=== PATIENT | female | born 1945 | race Caucasian/White ===

== ENCOUNTER 2016-10-05 08:03 | Inpatient (IN) | payer OTHER, BC ==
[2016-09-25 10:09] VITALS: BMI 29.0
--- NOTE | 2016-09-25 10:36 | PAT Medication Instructions ---
Service Date Sep 25, 2016. Current Home Medication List Budesonide/Formoterol Fumarate (Symbicort 160/4.5 Inhaler ), 2 PUFFS INH BID PRN for Shortness of Breath Levothyroxine Sodium (Levothyroxine Sodium), 1 TAB PO QAM Pravastatin Sod (Pravastatin Sodium), 40 MG PO HS Medication Instructions For Your Scheduled Surgery - Take the following medications the morning of surgery with a sip of water: Levothyroxine Sodium (Levothyroxine Sodium), 1 TAB PO QAM Budesonide/Formoterol Fumarate (Symbicort 160/4.5 Inhaler ), 2 PUFFS INH BID PRN for Shortness of Breath - Take the following medications as scheduled the night before surgery: Pravastatin Sod (Pravastatin Sodium), 40 MG PO HS Budesonide/Formoterol Fumarate (Symbicort 160/4.5 Inhaler ), 2 PUFFS INH BID PRN for Shortness of Breath If you have any questions please call us at [phone] (Scarlet Lawson PA-C) or [phone] or [phone]
--- NOTE | 2016-09-25 11:14 | DIAGNOSTIC IMAGING REPORT ---
CHEST 2 VIEWS ROUTINE CLINICAL HISTORY: PAT preoperative evaluation COMPARISON STUDY: No previous studies for comparison. FINDINGS: The bones soft tissues and hemidiaphragms are normal. The cardiomediastinal silhouette is normal. The lungs are clear. The pulmonary vasculature is normal. IMPRESSION: Negative chest. Electronically signed by: Adam Ortiz M.D. 09/25/2016 11:13 AM Dictated Date/Time: 09/25/2016 11:13 AM
[2016-09-25 11:36] LABS: BASO % 0.7 %; BASO ABS # 0.03 K/uL (0-0.2); COMPLETE YES; EOS % 1.3 %; HEMATOCRIT 39.6 % (37-47); LYMPH ABS # 1.18 K/uL (1.2-3.4); MEAN CELL VOLUME 85.9 fL (80-100); MEAN CORPUSCULAR HEMOGLOBIN 29.1 pg (25-34); MEAN CORPUSCULAR HGB CONC 33.8 g/dl (32-36); MEAN PLATELET VOLUME 9.1 fL (7.4-10.4); MONO % 6.4 %; NEUT % 65.6 %; PLATELET COUNT 341 K/uL (130-400); RED BLOOD COUNT 4.61 M/uL (4.2-5.4); WHITE BLOOD COUNT 4.53 K/uL (4.8-10.8)
[2016-09-25 11:58] LABS: CALCIUM 9.3 mg/dl (8.5-10.1); CREATININE 0.9 mg/dl (0.60-1.20); POTASSIUM 4.4 mmol/L (3.5-5.1)
[2016-09-25 12:01] LABS: INR 0.9 (0.9-1.1); PARTIAL THROMBOPLASTIN RATIO 0.9; PROTHROMBIN TIME (PATIENT) 9.7 SECONDS (9.0-12.0)
--- NOTE | 2016-09-30 21:18 | HISTORY & PHYSICAL EXAMINATION ---
DATE OF ADMISSION: 10/05/2016 CHIEF COMPLAINT: Right knee pain. HISTORY OF PRESENT ILLNESS: This is a 71-year-old female, who presents for surgical treatment of her right knee. She had a long history of knee problems. She has history of a knee arthroscopy done by Dr. Silva 2 years ago which really did not help at all. She continues to have pain in her knee. She has been through extensive conservative treatment. Very temporary response to injection. The pain is mostly medial. It is increased with weightbearing. She does have a with Parkinson's disease and having difficulty taking care of him due to her pain. PAST MEDICAL HISTORY: 1. Hypothyroidism. 2. Elevated cholesterol. 3. Heart murmur. 4. Asthma. 5. Cervical spondylosis. PAST SURGICAL HISTORY: 1. Left thumb surgery. 2. Right knee arthroscopy, done in June 2014. 3. Bunion surgery bilaterally. ALLERGIES: TO CELEBREX. CURRENT MEDICATIONS: 1. Synthroid. 2. Pravastatin. 3. Vitamin D. SOCIAL HISTORY: A 71-year-old female. She is a retired nurse. She is . FAMILY HISTORY: Noncontributory. REVIEW OF SYSTEMS: Negative for diabetes, neurologic problems, vascular problems or bleeding disorders. Denies any current chest pain or shortness of breath. No history of DVT or PE. PHYSICAL EXAMINATION: GENERAL: Reveals a healthy pleasant, middle-aged female. She looks to be in good health. HEENT: Benign. NECK: Supple. No lymphadenopathy. LUNGS: Clear to auscultation. HEART: Has a regular rate and rhythm. ABDOMEN: Soft, nontender, nondistended. EXTREMITIES: Grossly neurovascularly intact except as follows. Examination of the right lower extremity reveals the patient ambulates independently. She has got well-healed portal sites from previous surgery. The patient got valgus alignment to her knee. This is worse with weightbearing. Range of motion is 5 to about 125. No instability. X-RAYS: X-rays of the right knee were reviewed. It shows advanced lateral compartment DJD. She has got complete loss of her lateral joint space on the 45 degree flexion films. Fairly mild changes in the range of her knee. 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 She failed knee arthroscopy. She would like to have her knee replaced. PLAN: We are going to take her to the operating room and do a right total knee replacement. The risks and benefits of this procedure were explained to the patient including but not limited to DVT, PE, , infection, neurologic injury, vascular injury, bleeding problems, pain, limited range of motion, stiffness, failure to relieve her symptoms, incomplete relief of symptoms, need for further surgery in the future, persistent pain, etc. The patient understands and desires to proceed. Informed consent was obtained. Preoperative workup was all normal. She is planning to be discharged to home with the [facility] home health program. Her does have Parkinson's disease so she will need some additional help. I will see her back 2 weeks postop. JORJE
[2016-10-05] VITALS (7 sets, daily range): BP systolic 106–173; BP diastolic 58–90; PULSE 68–81; TEMP 36.3–36.7; O2SAT 94–100; Ht 165.1 cm; Wt 81.1 kg
[~2016-10-05] VITALS: Ht 165.1 cm; Wt 81.1 kg
[~2016-10-05 08:03] MED LIST: ACETAMINOPHEN 500 MG TAB PO SCH; BUPIVACAINE 0.5 % 5 MG/1 ML PF 10ML VIAL ONE; BUPIVACAINE LIPOSOME 266 MG, BUPIVACAINE/EPINEPHRINE INJ 50 ML, SODIUM CHLORIDE 0.9% PF... INFIL SCH; BUPIVACAINE/EPINEPHRINE 0.25% 1:200,000 30 ML VIAL ONE; CEFAZOLIN 2000 MG/60 ML D5W 60 ML IV SCH; FAMOTIDINE 20 MG TAB PO SCH; GABAPENTIN 300 MG CAP PO SCH; LACTATED RINGER'S 1000ML 1,000 ML IV SCH; LACTATED RINGER'S 1000ML IV SCH; LEVO100T7 PO; METOCLOPRAMIDE HCL 10 MG TAB PO SCH; PRVC40 PO; SCOPOLAMINE 1.5 MG TDSY TD SCH; SYMIN160 INH; TRANEXAMIC ACID INJ 1,000 MG in SODIUM CHLORIDE 0.9% 100ML 100 ML IV SCH
[2016-10-05] MEDS ORDERED: ERGO500037 PO (08:57)
--- NOTE | 2016-10-05 09:10 | History & Physical Bridge Note ---
H&P Re-Evaluation Bridge Note: I have examined the patient, reviewed the History & Physical and in the interval since the performance of the History & Physical I have noted the following changes of clinical significance: No changes noted
[2016-10-05] MEDS ORDERED: ONDANSETRON INJ 2 MG/ML 2 ML VIAL IV PRN ×2 (10:00→13:00)
[2016-10-05] MEDS ORDERED: ATROPINE SULFATE 0.1 MG/ML 5ML SYR IV PRN (10:00)
[2016-10-05] MEDS ORDERED: LABETALOL HCL IV 5 MG/ML 20ML IV PRN (10:00)
[2016-10-05] MEDS ORDERED: FENTANYL CITRATE INJ 50 MCG/1 ML 2 ML VIAL IV PRN (10:00)
[2016-10-05] MEDS ORDERED: PHENYLEPHRINE 100MCG/ML 5ML SYR IV PRN (10:00)
[2016-10-05] MEDS ORDERED: NALOXONE HCL 0.4 MG/1 ML VIAL/CARP IV PRN (10:00)
[2016-10-05] MEDS ORDERED: MEPERIDINE HCL 25 MG/ML CARP IV PRN (10:00)
[2016-10-05] MEDS ORDERED: EpHEDrine SULFATE INJ 50 MG/ML AMP IV PRN (10:00)
[2016-10-05] MEDS ORDERED: HYDROmorphone INJ 0.5 MG/0.5 ML SYR IV PRN (10:00)
[2016-10-05] MEDS ORDERED: FLUMAZENIL 0.1 MG/1 ML 10 ML VIAL IV PRN (10:00)
[2016-10-05] MEDS ORDERED: MIDAZOLAM HCL 1 MG/ML 2ML VIAL ONE (10:12)
[2016-10-05] MEDS ORDERED: FENTANYL CITRATE INJ 50 MCG/1 ML 2 ML VIAL ONE (10:12)
[2016-10-05] MEDS ORDERED: SODIUM CHLORIDE 0.9% PF 50 ML VIAL ONE (10:55)
[2016-10-05] MEDS ORDERED: BUPIVACAINE LIPOSOME 1/3% 266 MG/20 ML VIAL INFIL ONE (10:55)
[2016-10-05] MEDS ORDERED: BACITRACIN 50000 UNIT VIAL ONE (10:55)
[2016-10-05] MEDS ORDERED: BUPIVACAINE/EPINEPHRINE 0.25% 1:200,000 30 ML VIAL ONE (10:55)
[2016-10-05] MEDS ORDERED: LIDOCAINE HCL 2% 2 ML VIAL (20MG/ML) ONE (11:44)
[2016-10-05] MEDS ORDERED: PROPOFOL IV EMULSION 10 MG/ML 20 ML VIAL IV ONE (11:44)
[2016-10-05] MEDS ORDERED: PHENYLEPHRINE 100MCG/ML 5ML SYR ONE (11:44)
[2016-10-05] MEDS ORDERED: EpHEDrine SULFATE 50MG/5ML SYR ONE (12:12)
--- NOTE | 2016-10-05 12:55 | [facility] Post Operative Brief Note ---
Immediate Operative Summary Operative Date Oct 05, 2016. Pre-Operative Diagnosis Right knee Degenerative Joint Disease Post-Operative Diagnosis same as pre-operative Procedure(s) Performed Right Total Knee Arthroplasty Surgeon Dr. Simon Logan Visualizer Surgeon(s) Joce Barker PA-C Estimated Blood Loss 50ml Findings Right Knee DJD Fluids (cc crystalloids) 1400 cc Specimens A: Right knee bone and tissue Drains None Anesthesia Spinal Complication(s) None Disposition Recovery Room / PACU
[2016-10-05] MEDS ORDERED: METOCLOPRAMIDE HCL INJ 5 MG/ML 2 ML VIAL IV PRN (13:00)
[2016-10-05] MEDS ORDERED: ZOLPIDEM TARTRATE 5 MG TAB PO PRN (13:00)
[2016-10-05] MEDS ORDERED: BUDESONIDE/FORMOTEROL FUMARATE 160/4.5 60 PUFFS/INHALER INH PRN (13:00)
[2016-10-05] MEDS ORDERED: MAGNESIUM HYDROXIDE SUSP 30 ML UDC PO PRN (13:00)
[2016-10-05] MEDS ORDERED: ALUMINUM/MAGNESIUM/SIMETH (MAALOX MAX) 30 ML UDC PO PRN (13:00)
[2016-10-05] MEDS ORDERED: DiphenhydrAMINE HCL 50 MG/ML VIAL IV PRN (13:00)
[2016-10-05] MEDS ORDERED: SILVER SULFADIAZINE 1% CR 50 GM JAR EXT PRN (13:00)
[2016-10-05] MEDS ORDERED: BISACODYL 10 MG SUPP PR PRN (13:00)
--- NOTE | 2016-10-05 13:27 | DIAGNOSTIC IMAGING REPORT ---
RIGHT KNEE 1 OR 2 VIEWS ROUTINE CLINICAL HISTORY: Degenerative arthritis. Postop study COMPARISON: None. DISCUSSION: There are postsurgical changes of a total right knee arthroplasty and patellar resurfacing. The femoral and tibial components appear well seated. There is air within the soft tissues consistent with recent surgery. Overlying skin tyrone are evident. IMPRESSION: Postsurgical changes of a total right knee arthroplasty Electronically signed by: Franc Arciniega M.D. 10/05/2016 1:25 PM Dictated Date/Time: 10/05/2016 1:25 PM
--- NOTE | 2016-10-05 13:37 | OPERATIVE REPORT ---
DATE OF OPERATION: 10/05/2016 SURGEON: Dr. Simon Logan. SOFTWARE DEVELOPER MID LEVEL: JOSE Lilly PREOPERATIVE DIAGNOSIS: Right knee degenerative joint disease. POSTOPERATIVE DIAGNOSIS: Same. PROCEDURE PERFORMED: Right cemented posterior stabilized total knee arthroplasty. COMPLICATIONS: None. ESTIMATED BLOOD LOSS: 50 mL. FLUID REPLACEMENT: 1400 mL crystalloid fluid replacement. ANESTHESIA: Spinal with adductor canal block. DRAINS: None. SPECIMENS: Right knee sent for pathology. OPERATIVE INDICATIONS: The patient is a 71-year-old who has had a several year history of progressive increasing right knee pain and discomfort. She did have a knee arthroscopy done 2 years ago in [place] without much relief at all. She has continued to develop persistent and progressive pain, unresponsive to conservative care. X-rays revealed advanced lateral compartment DJD. The patient elects to proceed with operative treatment. OPERATIVE FINDINGS: Operative findings revealed advanced right knee DJD. She had grade 4 [id number] disease of the lateral femoral condyle, lateral tibial plateau as well as the patellofemoral joint. The medial side was fairly well preserved. She had a small knee effusion. Her bone was very osteopenic. OPERATIVE IMPLANTS: Operative implants consisted of: 1. Biomet Vanguard size 60 right posterior stabilized femoral component. 2. Biomet size 67 tibial tray. 3. A 10-mm posterior stabilized polyethylene insert. 4. A 31 x 8 all poly patella. OPERATIVE PROCEDURE: The patient was taken to the operating room, identified and placed on the operating table in the supine position. All contact areas were appropriately padded. IV antibiotics were provided by anesthesia team. A spinal anesthetic and adductor canal block had been implemented in the holding area. Rai catheter was placed in sterile fashion. Right thigh tourniquet was then placed and the right lower extremity was then prepped and draped in usual sterile fashion. The right leg was elevated and exsanguinated with Esmarch and tourniquet was placed at 300 mmHg. An anterior approach to the right knee was then performed through a longitudinal incision centered over the patella. Sharp dissection was carried out through the subcutaneous tissues down to the level of the extensor mechanism. A medial parapatellar arthrotomy incision was made. Some subperiosteal dissection was carried out medially. The fat pad was resected from beneath the patellar tendon. The lateral patellofemoral ligament was released. The patella was everted and knee was flexed. The osteophytes were taken off the distal femur. The ACL and PCL were then released from the distal femur and the tibia subluxated anteriorly. The external tibial alignment jig was then placed in the anterior face of the tibia and adjusted 12 mm medially. Proximal tibial cut was made to remove about 3-4 mm of bone from the most deficient aspect of the medial tibial plateau. Of note, her bone was extremely soft. The tibia was sized to a size 67. Attention was drawn on the femur. The distal femur was entered with a sharp drill bit. Intramedullary canal was suctioned. A right 5-degree valgus cutting guide was placed. Distal femoral cutting block was pinned in place. Distal femoral cut was made to take an additional 3 mm of bone off the distal femur. The knee was then brought out into full extension. I did do a release of the IT band and a little bit posterolateral capsule to equalize the extension gap. Great care was taken throughout to protect the peroneal nerve at all times. The knee was then flexed. The femur was then sized to a size 65. We did downsize this due to the narrow medial lateral dimensions of her femur. The AP cutting block was pinned parallel to the epicondylar axis, which was 3 degrees of external rotation. The anterior cut, anterior chamfer, posterior cut, and posterior chamfer cuts were made. Box cutting guide was placed and adjusted slightly lateral and the box cut was made. The knee was flexed. The remnants of the medial and lateral meniscus were excised. The osteophytes were taken off the posterior aspect of the femur. In order to equalize the flexion gap, I did release the popliteus tendon. A trial femoral component was placed. Tibial tray was pinned in maximum external rotation and drill and stem punch were used to create defect in proximal tibia for the tibial tray. The knee was then trialed and a 10-mm insert fit most appropriately. Attention was then drawn to the patella. The patella was cleaned of all soft tissues. Patella thickness measured 22 mm in thickness and was cut down to 13. It was sized to a size 31 patella. Lug holes were drilled for a 31 patella. Lateral osteophyte was removed. Patella button was placed. Knee was taken through range of motion and patella tracked nicely with no thumbs test. Attention was then drawn toward placement of the permanent components. All trial components were removed. I did irrigate with copious amounts of pulsatile lavage, but I had to limit the irrigation as it was wasshing away the bone. A bone plug was placed in the distal femur to limit blood loss. A double batch of Palacos G cement was mixed. A right size 60 posterior stabilized femoral component, size 67 tibial tray, a 10-mm posterior stabilized polyethylene insert, and a 31 x 8 all poly patella then cemented in place. Knee was brought out into full extension until cement hardened. A final cement check was then performed. Pericapsular tissues were injected with a total of 100 mL of a combination of 20 mL of Exparel, 30 mL of normal saline, and 50 mL of 0.25% Marcaine with epinephrine. The patient did receive 1 gram of tranexamic acid. The tourniquet was then let down for a final tourniquet time of 53 minutes. Hemostasis was assured with use of electrocautery. The extensor mechanism was then closed with a combination of #1 PDS suture and #1 Vicryl suture in a [id number] fashion. Extensor mechanism was checked and found to be intact. Subcutaneous tissues were then closed with 2-0 Dexon suture in a buried interrupted fashion. Skin was closed skin tyrone. Leg was then cleaned and dried and a sterile dressing of Xeroform, 4 x 4, sterile cast padding and Josue bandage were applied. The patient then transferred to the recovery room in stable condition. The patient tolerated the procedure well with no complications. All needle and sponge counts were correct at the end of the operation. I attest to the content of the Intraoperative Record and any orders documented therein. Any exceptions are noted below. MTDD
--- NOTE | 2016-10-05 14:13 | Anesthesiology Progress Note ---
Anesthesia Post Op Note Date & Time Oct 05, 2016 at 14:13 Vital Signs Pain Intensity: 0 Vital Signs Past 12 Hours Date Time Temp Pulse Resp B/P Pulse Ox O2 Delivery O2 Flow Rate FiO2 10/05/16 13:40 36.5 10/05/16 13:35 88 16 115/66 99 10/05/16 13:35 83 16 10/05/16 13:30 82 11 124/65 100 10/05/16 13:30 81 11 10/05/16 13:25 78 11 10/05/16 13:25 83 11 120/59 100 10/05/16 13:20 77 10 10/05/16 13:20 79 10 115/59 99 10/05/16 13:15 82 12 110/70 100 10/05/16 13:15 85 12 10/05/16 13:10 87 12 10/05/16 13:10 81 12 124/55 100 10/05/16 13:05 87 17 10/05/16 13:05 88 17 97/73 100 10/05/16 13:02 115/62 10/05/16 13:00 36.1 85 16 115/62 100 Nasal Cannula 3 10/05/16 09:11 36.6 75 20 173/90 98 Room Air Notes Mental Status: alert / awake / arousable, participated in evaluation Pt Amnestic to Procedure: Yes Nausea / Vomiting: adequately controlled Pain: adequately controlled Airway Patency, RR, SpO2: stable & adequate BP & HR: stable & adequate Hydration State: stable & adequate Neuraxial Anesthesia: was administered, sensory block is resolving Anesthetic Complications: no major complications apparent
--- NOTE | 2016-10-05 15:34 | PROGRESS NOTE ---
DATE: 10/05/2016 SUBJECTIVE: A 71-year-old white female postop from a right knee replacement. She is still in the recovery room waiting for a bed. She is doing well. No significant pain. No chest pain or shortness of breath. Not feeling dizzy or lightheaded. OBJECTIVE: VITAL SIGNS: Temperature is 36.5. Vital signs stable. GENERAL: Reveals a pleasant, elderly female. She is lying in bed and I had to wake her. LUNGS: Clear to auscultation. HEART: Has a regular rate and rhythm. ABDOMEN: Soft, nontender, nondistended. EXTREMITIES: Grossly neurovascularly intact except as follows. Examination of the right lower extremity reveals the leg to be well aligned. Dressing is clean, dry and intact. She can dorsiflex and plantarflex her foot appropriately. She is neurologically intact. X-RAYS: X-rays of the right knee were reviewed. It shows a cemented posterior total knee arthroplasty. The components looked to be in good position. A lot of cement in the tibia were reflective of her severe osteoporosis. ASSESSMENT: A 71-year-old white female postop from a right knee replacement, doing well. Pain is controlled. She is neurologically intact. She is just waiting for a bed. PLAN: 1. DVT prophylaxis including thigh-high TEDs, SCDs, and aspirin twice a day. 2. PT/OT. Weightbearing as tolerated. Right total knee protocol. 3. Pain control, doing well with current pain regimen. 4. IV antibiotics x 24 hours. 5. Disposition: Plan to discharge, likely to home with home health once adequately recovered.
[2016-10-05] MEDS: CHECK SCOPOLAMINE PATCH PLACEMENT SCH (16:28)
[2016-10-05] MEDS: D5W AND 1/2NSS + 20MEQ KCL 1,000 ML IV SCH (18:36)
[2016-10-05] MEDS: FERROUS GLUCONATE 324 MG TAB PO SCH (18:36)
[2016-10-05] MEDS: KETOROLAC TROMETHAMINE 15 MG/ML VIAL IV. SCH (18:37)
[2016-10-05] MEDS ORDERED: TRANEXAMIC ACID INJ 1,000 MG in SODIUM CHLORIDE 0.9% 100ML 100 ML IV SCH (19:00)
[2016-10-05] MEDS: CEFAZOLIN IV 2,000 MG in DEXTROSE 5% 50ML 50 ML IV SCH (19:13)
[2016-10-05] MEDS: TRAMADOL HCL 50 MG TAB PO PRN (19:13)
[2016-10-05] MEDS: ASPIRIN 325 MG ECTAB PO SCH (21:24)
[2016-10-05] MEDS: DOCUSATE SODIUM 100 MG CAP PO SCH (21:24)
[2016-10-05] MEDS: PRAVASTATIN SOD 40 MG TAB PO SCH (21:24)
[2016-10-05] MEDS: ACETAMINOPHEN 500 MG TAB PO SCH (21:24)
[2016-10-06] VITALS (7 sets, daily range): BP systolic 95–177; BP diastolic 57–82; PULSE 67–76; TEMP 36.2–36.8; O2SAT 93–95
[2016-10-06] MEDS: CHECK SCOPOLAMINE PATCH PLACEMENT SCH ×4 (00:07→23:29)
[2016-10-06] MEDS: KETOROLAC TROMETHAMINE 15 MG/ML VIAL IV. SCH ×5 (00:07→23:29)
[2016-10-06] MEDS: D5W AND 1/2NSS + 20MEQ KCL 1,000 ML IV SCH (03:44)
[2016-10-06] MEDS: CEFAZOLIN IV 2,000 MG in DEXTROSE 5% 50ML 50 ML IV SCH (03:44)
[2016-10-06] MEDS: ACETAMINOPHEN 500 MG TAB PO SCH ×3 (05:54→21:23)
[2016-10-06] MEDS: LEVOTHYROXINE 100 MCG TAB PO SCH (05:54)
[2016-10-06 06:11] LABS: HEMATOCRIT 30.3 % (37-47); MEAN CELL VOLUME 86.1 fL (80-100); MEAN CORPUSCULAR HEMOGLOBIN 28.7 pg (25-34); MEAN CORPUSCULAR HGB CONC 33.3 g/dl (32-36); MEAN PLATELET VOLUME 8.8 fL (7.4-10.4); PLATELET COUNT 271 K/uL (130-400); RED BLOOD COUNT 3.52 M/uL (4.2-5.4); WHITE BLOOD COUNT 5.46 K/uL (4.8-10.8)
[2016-10-06 06:47] LABS: BUN/CREATININE RATIO 11.7 (10-20); CALCIUM 7.9 mg/dl (8.5-10.1); POTASSIUM 4.1 mmol/L (3.5-5.1)
--- NOTE | 2016-10-06 07:32 | PROGRESS NOTE ---
DATE: 10/06/2016 SUBJECTIVE: A 71-year-old white female postop day 1 from right knee replacement. She is doing pretty well. Had a good night. Slept well. Pain is controlled. No chest pain or shortness of breath. Not feeling dizzy or lightheaded. OBJECTIVE: VITAL SIGNS: Temperature 36.5. Vital signs stable. PHYSICAL EXAMINATION: GENERAL: Reveals a healthy, pleasant middle-aged female. She is lying in bed and looks comfortable. LUNGS: Clear to auscultation. HEART: Regular rate and rhythm. ABDOMEN: Soft, nontender, nondistended. EXTREMITIES: Grossly neurovascularly intact except as follows. Examination of the right lower extremity reveals the leg to be well aligned. Dressing is clean, dry and intact. She can dorsiflex and plantarflex her foot appropriately. NEUROLOGIC: She is neurologically intact. LABORATORY DATA: Hemoglobin 10.1. Hematocrit 30.3. Electrolytes are stable. ASSESSMENT: This is a 71-year-old white female postop day 1 from right knee replacement, doing pretty well. Pain is controlled. She is neurologically intact. PLAN: 1. DVT prophylaxis including thigh-high TEDs, SCDs, and aspirin twice a day. 2. PT/OT. Weightbearing as tolerated. Right total knee protocol. 3. Pain control, doing well with current pain regimen. 4. Disposition: Plan to discharge to home with home health once adequately recovered.
[2016-10-06] MEDS: DOCUSATE SODIUM 100 MG CAP PO SCH ×2 (08:21→21:22)
[2016-10-06] MEDS: TRAMADOL HCL 50 MG TAB PO PRN (08:21)
[2016-10-06] MEDS: CHOLECALCIFEROL 400 INTER.UNIT TAB PO SCH (08:22)
[2016-10-06] MEDS: FERROUS GLUCONATE 324 MG TAB PO SCH ×4 (08:22→17:58)
[2016-10-06] MEDS: ASPIRIN 325 MG ECTAB PO SCH ×2 (08:22→21:22)
[2016-10-06] MEDS: PANTOprazole SOD 40 MG TAB PO SCH (08:22)
[2016-10-06] MEDS: MULTIVITAMIN TAB PO SCH (08:22)
[2016-10-06] MEDS ORDERED: FRRG PO (20:39)
[2016-10-06] MEDS ORDERED: ULT50X PO (20:39)
[2016-10-06] MEDS ORDERED: ACET-1138 PO (20:39)
[2016-10-06] MEDS ORDERED: ASPEC325 PO (20:39)
--- NOTE | 2016-10-06 20:42 | Discharge Instructions ---
Discharge Instructions Date of Service Oct 06, 2016. Admission Reason for Admission: Right Knee Osteoarthritis, Knee Pain Discharge Discharge Diagnosis / Problem: Right Knee Replacement Discharge Goals Goal(s): Decrease discomfort, Improve function, Increase independence, Improve disease control, Therapeutic intervention Activity Recommendations Activity Limitations: per Instructions/Follow-up section Weightbearing Status: Right weightbearing . Instructions / Follow-Up Instructions / Follow-Up ACTIVITY RECOMMENDATIONS: Physical Therapy: * You will go to physical therapy three times each week for four to six weeks after your surgery in order to regain your knee range of motion and to retrain your knee to work properly. * It is just as important to make sure you are getting your knee perfectly straight as it is to regain your knee bend. * Taking a pain pill an hour before therapy can help you have a more productive and comfortable therapy session. Home Exercise: * You were shown a series of exercises (heel props, heel slides, etc.) in the hospital. Do these exercises three to four times each day including the exercises you were shown in physical therapy. Walking: * Get up and walk several times each day. For the first four weeks, try not to stand or walk for more than one hour at a time. If you do stand or walk for more than one hour, you will not hurt anything, but your knee and leg will likely swell. * As you feel comfortable, you may change from the walker or crutches to a cane and then to independent walking. MEDICATIONS: New Medicine: * You will likely be taking one or more of these medications: 1. Tramadol - A quick and shorter-acting pain medication. Take one to two tablets every four to six hours to lessen your pain. 2. Iron Sulfate - Take three times each day for the month after surgery to help you replace the blood lost during surgery. 3. Aspirin - Thins your blood to lessen the chance of forming a blood clot. * The most common side effects of pain medicine and iron are nausea and constipation. If nausea or constipation is too much of a problem or if you have any questions about your new medicines or doses, call [facility] at . We will try to help you manage these issues. VERY IMPORTANT TO READ AND REVIEW" Pain: * The immediate post-operative period after knee replacement surgery is often quite painful. * You are given a prescription for pain medicine. You should take it, as directed, when you need it, especially before physical therapy and before going to bed. Pain that interferes with sleep is very common and can last several months. * You will likely need pain medicine for the first four to six weeks. It will not stop all of the pain. The pain will lessen and as you feel better, you may change to milder pain medicine such as Tylenol. * The most common side effects of pain medicine are nausea and constipation, so don't take more than you need. SPECIAL CARE INSTRUCTIONS: TEDs/Elastic Stockings: * The white elastic stockings help limit swelling and prevent blood clots from forming in your legs. The more you wear them, the more they work. * Wear them for six weeks after knee replacement surgery and four weeks after partial knee replacement. Prevention of Infection: * Take antibiotics one hour before any dental cleaning, dental work, urological procedure, gastrointestinal procedure or any invasive surgery in order to prevent your new joint from getting infected. * You may get the antibiotics from the doctor performing the procedure or you may call our office at before and we will call in a prescription to the pharmacy of your choice. Things to Watch For: * Drainage from the incision site that occurs more than one week after your surgery. * Severely increased knee/leg pain or swelling. * Increased redness at the incision site. * Fever above 102 degrees Fahrenheit. * Unusual chest pain or shortness of breath. * Unusual pain or burning with urination. Call [facility] at with any of the above problems or if you have any questions about your medicines or recovery. FOLLOW UP VISIT: Make an appointment to see your doctor for approximately two weeks after surgery for a progress check and staple removal by calling the office at . Current Hospital Diet Patient's current hospital diet: Regular Diet Discharge Diet Recommended Diet: Regular Diet Procedures Procedures Performed: Right Total Knee Arthroplasty Pending Studies Studies pending at discharge: no Medical Emergencies . Who to Call and When: Medical Emergencies: If at any time you feel your situation is an emergency, please call 121 immediately. . Non-Emergent Contact Non-Emergency issues call your: Surgeon . "Provider Documentation" section prepared by Simon Logan. VTE Core Measure Inpt VTE Proph given/why not?: Other Anticoagulation, T.E.D. Stockings, SCD's
[2016-10-06] MEDS: PRAVASTATIN SOD 40 MG TAB PO SCH (21:21)
[2016-10-07] MEDS: LEVOTHYROXINE 100 MCG TAB PO SCH (05:43)
[2016-10-07] MEDS: KETOROLAC TROMETHAMINE 15 MG/ML VIAL IV. SCH (05:43)
[2016-10-07] MEDS: ACETAMINOPHEN 500 MG TAB PO SCH (05:43)
[2016-10-07 06:04] VITALS: BP 159/81; PULSE 70; TEMP 36.6; O2SAT 94
[2016-10-07] MEDS: MULTIVITAMIN TAB PO SCH (07:14)
[2016-10-07] MEDS: CHOLECALCIFEROL 400 INTER.UNIT TAB PO SCH (07:15)
[2016-10-07] MEDS: PANTOprazole SOD 40 MG TAB PO SCH (07:15)
[2016-10-07] MEDS: ASPIRIN 325 MG ECTAB PO SCH (07:21)
[2016-10-07] MEDS: DOCUSATE SODIUM 100 MG CAP PO SCH (07:21)
[2016-10-07] MEDS: TRAMADOL HCL 50 MG TAB PO PRN (07:22)
[2016-10-07] MEDS: FERROUS GLUCONATE 324 MG TAB PO SCH (07:23)
[2016-10-07 07:57] VITALS: BP 122/68; PULSE 73; TEMP 36.8; O2SAT 97
[2016-10-07 08:22] VITALS: BP 122/68; PULSE 73; TEMP 36.8; O2SAT 97
--- NOTE | 2016-10-07 08:36 | PROGRESS NOTE ---
DATE: 10/07/2016 SUBJECTIVE: A 71-year-old white female postop day 2 from right knee replacement. She is doing pretty well. Pain is controlled. Therapy went reasonably well. Denies any chest pain or shortness of breath. Not feeling dizzy or lightheaded. OBJECTIVE: VITAL SIGNS: Temperature 36.8. Vital signs stable. PHYSICAL EXAMINATION: GENERAL: Reveals a healthy, pleasant middle-aged female. She is sitting up in bed and looks relatively comfortable. LUNGS: Clear to auscultation. HEART: Regular rate and rhythm. ABDOMEN: Soft, nontender, nondistended. EXTREMITIES: Grossly neurovascularly intact except as follows: Examination of the right leg reveals the leg to be well aligned. Dressing is clean, dry and intact. She can dorsiflex and plantarflex her foot appropriately. NEUROLOGIC: She is neurologically intact. ASSESSMENT: A 71-year-old white female postop day 2 from right knee replacement, doing pretty well. Pain is controlled. She is neurologically intact. PLAN: 1. DVT prophylaxis including thigh-high TEDs, SCDs, and aspirin twice a day. 2. PT/OT. Weightbearing as tolerated. Right total knee protocol. 3. Pain control, doing pretty well with current pain regimen. 4. Disposition: Plan to discharge to home with some home health after therapy today.
[2016-10-07 09:00] VITALS: BP 122/68; PULSE 73; O2SAT 97
[2016-10-07 09:21] VITALS: O2SAT 97
--- NOTE | 2016-10-16 18:12 | DISCHARGE SUMMARY ---
ADMITTING PHYSICIAN AND SURGEON: Dr. Logan. ADMITTING DIAGNOSIS: Right knee degenerative joint disease. SURGERY PERFORMED: Right total knee arthroplasty. SECONDARY DIAGNOSES: Includes hypothyroidism, elevated cholesterol, heart murmur, asthma and cervical spondylosis. HISTORY AND PHYSICAL EXAMINATION: Well documented in the patient's chart. HOSPITAL COURSE: The patient was admitted on 10/05/2016 underwent total knee arthroplasty. She tolerated the procedure well. There were no complications. She was transferred to the PACU postoperatively and later to the orthopedic floor for further care. She was given Ancef for antibiotic prophylaxis, FARHAD stockings, SCDs and aspirin for DVT prophylaxis. Hemoglobin, hematocrit and vital signs were monitored during her hospital stay and remained stable. She developed some mild postoperative anemia with a hemoglobin of 10.1. She did not require any blood transfusions. There were no complications. By postoperative day #2, she was tolerating a general diet, pain was controlled with oral pain medicine. She was participating in physical therapy and had no signs or symptoms of deep vein thrombosis. On postop day #2, she was discharged home in good condition, set up with home health services. She was given printed discharge instructions including prescriptions for extra strength Tylenol, aspirin 325 mg b.i.d., iron supplement and tramadol. Continue her home medicines. Continue physical therapy, weightbearing as tolerated, FARHAD stockings. Follow up in 10-12 days or sooner if there are problems or concerns.
== END 2016-10-07 10:19 | disposition home health service (06) | DRG 470 ==
LOC: ENRESERV → ENRESERVDT → ENRESERVTM → C.ACU 08:03 → C.3E 09:05
PROVIDERS: ADMIT Orthopaedic Surgery Sports Medicine; ATTEND Orthopaedic Surgery Sports Medicine
PROC: 0SRC0J9 Replacement of Right Knee Joint with Synthetic Substitute, Cemented, Open Approach (ICD-10-PCS; principal; 2016-10-05 10:55)
DX: M17.11 Unilateral primary osteoarthritis, right knee (principal); M25.461 Effusion, right knee; M85.861 Other specified disorders of bone density and structure, right lower leg; M81.0 Age-related osteoporosis without current pathological fracture; E03.9 Hypothyroidism, unspecified; E78.00 Pure hypercholesterolemia, unspecified; J45.909 Unspecified asthma, uncomplicated; R01.1 Cardiac murmur, unspecified; Z79.51 Long term (current) use of inhaled steroids; Z79.899 Other long term (current) drug therapy